=== PATIENT | female | born 1930 | race Caucasian/White ===

== ENCOUNTER 2016-10-14 09:38 | Outpatient (CLI) | payer MEDICARE, OTHER ==
[2016-01-22 09:06] VITALS: BP 141/75
[~2016-10-14 09:38] MED LIST: 0.9 % SODIUM CHLORIDE PF 10 ML VIAL IJ ONE; BUPIVACAINE HCL/PF 2.5 MG/ML 10ML VIAL IV ONE; Lidocaine 1% 5ml(IM or SUTURE)(PAIN CLINIC) ONE; TRIAMCINOLONE ACETONID 40MG/ML VIAL ONE
--- NOTE | 2016-10-14 13:50 | CAUDAL ESI WITH FLUORO ---
SUBJECTIVE: Ms. Seth presents today in follow up with back pain and bilateral lower extremity pain, now doing better, for a caudal epidural injection with trigger point placement. She has dementia and she really has a lot of trouble with the interview and physical localizing her symptoms. PROCEDURE: Caudal epidural steroid injection with trigger point injections under fluoroscopic guidance. DESCRIPTION OF PROCEDURE: The risks and benefits of a caudal epidural steroid injection were explained to the patient, including the risk of infection, bleeding, nerve injury, worsened pain, failure to relieve pain, spinal headache or steroid exposure risks, including hyperglycemia, hypertension, osteoporosis, and increased infectious risks. The patient understood the risks and agreed to proceed. The patient was placed on the fluoroscopy table in the prone position with a pillow underneath the abdomen. The caudal area was cleaned. AP and lateral fluoroscopic views were obtained, identifying the sacrum and sacral hiatus. The caudal epidural space was accessed from a percutaneous approach at the sacral hiatus with a 23-gauge, 3- inch needle. On entering the caudal epidural space, it was verified that there was no aspiration of blood or CSF or urine. Furthermore, the needle tip location was verified with lateral and AP fluoroscopic views. Omnipaque 240 myelogram dye was injected through the needle. The distribution of the dye was noted to be within the desired distribution within the caudal epidural space. At this point, triamcinolone acetate and 1% of lidocaine was injected into the caudal epidural space. The needle was subsequently removed from the back. At this point, attention was directed to the lumbosacral junction and an injection in the right and left iliolumbar ligament was performed with 0.25% bupivacaine mixed with 1% lidocaine and triamcinolone into the left and right sides. The patient tolerated the procedure without adverse sequelae. The area was cleaned and a bandage was applied over the injection sites. The patient was then monitored for 20 minutes following the procedure, during which time the vital signs remained stable and no adverse sequelae were noted or reported. 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 ASSESSMENT: 1. Intervertebral disk disorder. 2. Lumbar stenosis. PLAN: Caudal epidural steroid injection with trigger point injections under fluoroscopic guidance. FOLLOW UP: Patient is to call for complications or worsened pain. DAVID
== END 2016-10-14 09:48 ==
LOC: OUT 09:38
PROVIDERS: ATTEND Anesthesiology Pain Medicine
DX: M48.06 Spinal stenosis, lumbar region (principal); M51.36 Other intervertebral disc degeneration, lumbar region; M79.605 Pain in left leg; M79.604 Pain in right leg
CPT/HCPCS: 99214; G0463; J3301; J3490; Q9966

== ENCOUNTER 2016-11-01 14:56 | Outpatient (CLI) | payer MEDICARE, OTHER ==
[2016-01-22 09:06] VITALS: BP 141/75
== END 2016-11-01 14:57 ==
LOC: POD 14:56
PROVIDERS: ATTEND Podiatrist
DX: B35.1 Tinea unguium (principal); M79.674 Pain in right toe(s); M79.675 Pain in left toe(s)
CPT/HCPCS: 11721; G0463

== ENCOUNTER 2016-11-18 10:42 | Outpatient (CLI) | payer MEDICARE, OTHER ==
[2016-01-22 09:06] VITALS: BP 141/75
[~2016-11-18 10:42] MED LIST changes: -BUPIVACAINE HCL/PF 2.5 MG/ML 10ML VIAL IV ONE
--- NOTE | 2016-11-18 12:37 | CERVICAL ESI WITH FLUORO ---
SUBJECTIVE: Rae follows up with me today at [facility]. She says her back pain has completely resolved following a lumbar epidural injection. She wants her neck treated today. She is having left-sided neck pain. She has had a history of a remote ACDF in the past. She has symptoms of neck pain radiating to her left shoulder blade. She denies arm pain. She denies incontinence of bowel or bladder. She denies numbness or weakness in her upper extremities. I have no recent imaging. PROCEDURE PERFORMED: Left C7-T1 epidural steroid injection with fluoroscopic guidance. DESCRIPTION OF PROCEDURE: The risks and benefits were discussed with the patient, including the risks of infection, bleeding, nerve injury including paralysis, and headache. Furthermore , I discussed the risk of steroid exposure causing hyperglycemia, hypertension, osteoporosis, or increased infectious risks. The patient understood these risks and agreed to proceed. Consent was obtained. The patient was placed prone on the fluoroscopy table with a pillow underneath the chest to afford slight anterior flexion of the cervical spine. The patient' s back of the neck was cleaned and a sterile drape was applied. A 20-gauge thin-wall Tuohy epidural needle was inserted with a left paramedian approach at the C7-T1 interspace level. The position of the needle was verified with AP and lateral fluoroscopic views. The needle was advanced with a normal saline afur-rv-utzoyztsol technique until ygbo-rx-pbmtlojmmj was obtained. On obtaining tlvv-om-rnwtvkuima to normal saline it was verified that there was no aspiration of CSF or blood. At this point, triamcinolone acetate, 1 % lidocaine, and 0.25% bupivacaine was injected into the cervical epidural space. The stylet was replaced in the needle and the needle was removed from the neck. The neck was cleaned and a bandage was applied over the injection site. The patient tolerated the procedure well and was monitored afterwards for a total of 20 minutes during which time the vital signs remained stable and no adverse sequelae were experienced. The patient was discharged home in good condition. Prior to discharge the patient was given discharge instructions. ASSESSMENT: 1. Cervical radiculitis with history of anterior cervical diskectomy and fusion (ACDF). 2. Lumbosacral back pain with radiculitis, now resolved. PLAN: Plan today for a cervical epidural steroid injection at C7-T1. If she is not improved, I would obtain an MRI study. FOLLOW UP: She will follow up in 6 weeks. DAVID
== END 2016-11-18 10:43 ==
LOC: OUT 10:42
PROVIDERS: ATTEND Anesthesiology Pain Medicine
DX: M54.5 Low back pain (principal)
CPT/HCPCS: J3301; Q9966; 99214; G0463

== ENCOUNTER 2016-12-30 08:16 | Outpatient (CLI) | payer MEDICARE, OTHER ==
[2016-01-22 09:06] VITALS: BP 141/75
--- NOTE | 2016-12-31 11:48 | LESI WITH FLUORO ---
REFERRING PHYSICIAN: Dr. Nixon Blanco SUBJECTIVE: I had the opportunity of seeing Rae Seth today as an outpatient at [facility]. This is a very nice lady who I have treated for both cervical radiculitis most recently and in the past, lumbar radiculitis with neurogenic claudication associated with L4-L5 spinal stenosis. She says the neck and shoulder pain is better. She is not having severe leg pain; however, the back pain is now recurring when she stands and walks. She had 2 epidural injections last year and a cervical injection this year, and I have told her that I would treat her today but after that, I would want to wait at least 3 to 4 months prior to any further treatment for stenosis. Her symptoms are primary back pain when she stands and walks which resolves when she sits or lies down. Plan today for a left L5-S1 epidural steroid injection. I am going to keep the dose to a minimal dose. OPERATIVE PROCEDURE: Left L5-S1 epidural steroid injection with fluoroscopic guidance. DESCRIPTION OF PROCEDURE: The risks and benefits were discussed with the patient including the risk of infection, bleeding, nerve injury, and headache, as well as the risks of steroid exposure causing hyperglycemia, hypertension, osteoporosis, or increased infectious risks. The patient understood these risks and agreed to proceed. Consent was obtained prior to the procedure. The patient was placed in the prone position on the fluoroscopy table with a pillow underneath the abdomen to afford anterior flexion of the lumbar spine. The low back was cleaned and a sterile drape was applied. An 18-gauge thin wall Tuohy epidural needle was advanced with normal saline loss of resistance technique and direct fluoroscopic guidance with a left paramedian approach at the L5-S1 level. On obtaining loss of resistance to normal saline, it was verified that there was no aspiration of CSF or blood. Furthermore, the needle tip location was verified with lateral and AP fluoroscopic views. Omnipaque 240 myelogram dye were injected through the epidural needle. The distribution of the dye was noted to be within the desired distribution within the lumbar epidural space. Triamcinolone acetate and 1% lidocaine was injected into the epidural space. The stylet was replaced in the needle and the needle was removed from the back. The patient tolerated the procedure well. The back was cleaned and a bandage was applied over the injection site. The patient was monitored for 20 minutes following the procedure. during this time the vital signs remained stable and the patient experienced no adverse sequelae. The patient was discharged in good condition. ASSESSMENT: 1. L4-L5 spinal stenosis. 2. History of cervical stenosis, now symptoms have resolved. PLAN: Left L5-S1 epidural steroid injection with fluoroscopic guidance. FOLLOWUP: Return to clinic if problems develop or worsen. Dr. Blanco, thank you again for allowing me to take part in the care of this nice lady. cc: Dr. Nixon HERNANDEZ
== END 2016-12-30 08:17 ==
LOC: OUT 08:16
PROVIDERS: ATTEND Anesthesiology Pain Medicine
DX: M48.06 Spinal stenosis, lumbar region (principal)
CPT/HCPCS: J3301; Q9966; 99213; G0463

== ENCOUNTER 2017-01-17 14:14 | Outpatient (CLI) | payer MEDICARE, OTHER ==
[2016-01-22 09:06] VITALS: BP 141/75
== END 2017-01-17 14:15 ==
LOC: POD 14:14
PROVIDERS: ATTEND Podiatrist
DX: B35.1 Tinea unguium (principal); M79.674 Pain in right toe(s); M79.675 Pain in left toe(s)
CPT/HCPCS: 11721; G0463

== ENCOUNTER 2017-01-24 09:48 | Outpatient (CLI) | payer MEDICARE, OTHER ==
[2016-01-22 09:06] VITALS: BP 141/75
--- NOTE | 2017-01-24 20:34 | Diagnostic Imaging Report ---
PRETTY LEMONS [facility] [address] [facility] [address] [place] [address]. [id number] Report Submission Date: January 24, 2017 4:16:27 PM CDT Patient Study Name: JENELLE WILSON Date: January 24, 2017 10:12:36 AM CDT Modality Type: CT\SR Gender: F Description: CT L-SPINE W/O CONTRAS : 28 Institution: [facility] Physician: PRETTY LEMONS CT lumbar spine without contrast. History: Chronic back pain increasing or 6 months, left greater than right Technique: Transaxial computed tomography images of the lumbar spine were obtained without the use of intravenous contrast according to standard protocol. Coronal and sagittal images were obtained as part of the examination. Findings: Severely low scoliosis is seen in lower lumbar spine. The vertebral body height are normal. There is no evidence of acute fracture. There severe invertebral disc space narrowing throughout the lumbar spine with associated vacuum disc phenomena. A L5 pars defect is present with associated grade II anterolisthesis of L5 on S1 noted. There is multilevel posterior disc bulge and spurring present throughout the lumbar spine including L1/L2, L2/L3, and L3/L4. There is also facet arthropathy which results in right neural foraminal stenosis at these levels. This also at least mild central canal stenosis at L1/L2, L2/L3, and L3/L4 present. There is bilateral foraminal stenosis at L5/S1. There is no paravertebral soft tissue swelling. There is atherosclerosis of the aorta. Impression: 1. No acute osseous injury . 2. Levoscoliosis with extensive multilevel spondylosis resulting in multilevel central canal stenosis and foraminal stenosis as described. 3. L5 pars defect with grade II anterolisthesis of L5 on S1 noted resulting in bilateral neural foraminal stenosis Electronically signed on January 24, 2017 4:16:27 PM CDT by: Rich HERNANDEZ
--- NOTE | 2017-01-24 20:34 | Diagnostic Imaging Report ---
PRETTY LEMONS [facility] [address] [facility] [address] [place] [address]. [id number] Report Submission Date: January 24, 2017 4:07:35 PM CDT Patient Study Name: JENELLE WILSON Date: January 24, 2017 10:07:38 AM CDT Modality Type: CT\SR Gender: F Description: CT T-SPINE W/O CONTRAS : 29 Institution: [facility] Physician: PRETTY LEMONS CT thoracic spine without contrast. History: Chronic back pain increasing or 6 months, left greater than right Technique: Transaxial computed tomography images of the thoracic spine were obtained without the use of intravenous contrast according to standard protocol. Coronal and sagittal images were obtained as part of the examination. Findings: S-shaped thoracolumbar scoliosis with rightward curvature in the lower thoracic spine noted. There is no evidence of acute fracture present. There is no subluxation. There is severe intervertebral disc space narrowing throughout the thoracic spine with prominent anterior spurring within the mid and upper thoracic spine particularly and also within the lower lumbar spine at the thoracolumbar junction. There is also partial ankylosing of the upper thoracic vertebrae. There is also mild facet arthropathy in the lower thoracic spine. No definite osseous central canal stenosis is identified. There is no paravertebral soft tissue swelling. There is atherosclerosis of the aorta. Impression: 1. S-shaped thoracolumbar scoliosis with multilevel intervertebral disc space narrowing with spurring present throughout. No osseous central canal stenosis is appreciated on the CT. 2. No acute osseous abnormality. Electronically signed on January 24, 2017 4:07:35 PM CDT by: Rich HERNANDEZ
--- NOTE | 2017-01-24 20:34 | Diagnostic Imaging Report ---
PRETTY LEMONS [facility] [address] [facility] [address] [place] [address]. [id number] Report Submission Date: January 24, 2017 10:46:00 AM CDT Patient Study Name: JENELLE WILSON Date: January 24, 2017 10:03:21 AM CDT Modality Type: CT\SR Gender: F Description: CT C-SPINE W/O CONTRAS : 29 Institution: [facility] Physician: PRETTY LEMONS CT of the cervical spine CLINICAL HISTORY: Chronic neck pain and back pain. TECHNIQUE: CT of the cervical spine is performed in contiguous axial slices with sagittal and coronal reconstructions. FINDINGS: Disc spaces are narrowed at C3-4, C4-5. There has been prior fusion at C5-6, C6 -7 and C7-T1 with solid-appearing fusion anteriorly. Degenerative anterolisthesis at C4-5 measures 3 mm. Prevertebral soft tissues are within normal limits. The C1-2 articulation is normal and the base of the odontoid is intact. Carotid arterial calcification is incidentally noted. There is no evident fracture. IMPRESSION: Multilevel spondylosis. Prior fusion C5 through T1. Degenerative anterolisthesis at C4-5. Electronically signed on January 24, 2017 10:46:00 AM CDT by: Leobardo HERNANDEZ
== END 2017-01-24 09:50 ==
LOC: RAD 09:48
PROVIDERS: ATTEND Anesthesiology Pain Medicine
DX: M54.9 Dorsalgia, unspecified (principal); M54.2 Cervicalgia
CPT/HCPCS: 72125; 72128; 72131

== ENCOUNTER 2017-01-27 14:44 | Outpatient (CLI) | payer MEDICARE, OTHER ==
[2016-01-22 09:06] VITALS: BP 141/75
--- NOTE | 2017-01-29 13:52 | PAIN CLINIC PROGRESS NOTES ---
REASON FOR VISIT: I am seeing Ms. Seth for complaints of severe pain; however, she tells me she has no symptoms and no complaints at this point. We received a call from her care facility and new imaging was obtained which reveals multi-level spinal stenosis in the lumbar spine, L1-L2 through L3-L4 with neuroforaminal narrowing bilaterally at L5-S1 associated with grade 1 to 2 spondylolisthesis and a pars defect. Also, some stenosis of the cervical spine. ASSESSMENT: 1. Cervical and lumbar scoliosis. 2. Grade 1 to 2 spondylolisthesis of L5-S1 with a pars defect. 3. Thoracic scoliosis. PLAN: At this point, since Ms. Seth obviously has had no injury, no evidence of fracture, and no symptoms of radiculitis or neurogenic claudication, I do not recommend any therapy. I will follow her up if her symptoms should worsen or reoccur. cc: Dr. Nixon HERNANDEZ
== END 2017-01-27 14:45 ==
LOC: OUT 14:44
PROVIDERS: ATTEND Anesthesiology Pain Medicine
DX: M41.9 Scoliosis, unspecified (principal); M43.17 Spondylolisthesis, lumbosacral region
CPT/HCPCS: 99203; G0463

== ENCOUNTER 2017-04-22 14:47 | Outpatient (CLI) | payer MEDICARE, OTHER ==
[2016-01-22 09:06] VITALS: BP 141/75
== END 2017-04-22 14:50 ==
LOC: POD 14:47
PROVIDERS: ATTEND Podiatrist
DX: L89.893 Pressure ulcer of other site, stage 3 (principal)
CPT/HCPCS: 11042; G0463

== ENCOUNTER 2017-05-05 08:30 | Outpatient (CLI) | payer MEDICARE, OTHER ==
[2016-01-22 09:06] VITALS: BP 141/75
--- NOTE | 2017-05-08 13:12 | PAIN CLINIC PROGRESS NOTES ---
REFERRING PHYSICIAN: Dr. Nixon Blanco Dear Nixon: REASON FOR VISIT: I had the opportunity of following up with Rae Seth. This is a patient I have treated for lumbar radiculitis in the past. She is a very sweet 85-year-old white female who suffers from mild dementia. She says the back and leg pain is returning today, and as I look at her legs, she is developing what appears to be cellulitis of both lower extremities. She is scheduled to relocate to be with her other daughter out of state and to this extent, I told her that I would try to get her back in for treatment before she leaves. However, because of the cellulitis, I am not able to give her a palliative injection today. PLAN: Therefore, I am going to start her on some doxycycline 200 mg twice a day for 21 days and I will follow her up either at [facility] or at my office for caudal epidural injection versus lumbar epidural block. I have explained this to her and she is in agreement and we will see her back in the near future. In the interim, I am going to have her visit with Dr. Blanco. cc: Dr. Nixon HERNANDEZ
== END 2017-05-05 09:00 ==
LOC: OUT 08:30
PROVIDERS: ATTEND Anesthesiology Pain Medicine
DX: M54.16 Radiculopathy, lumbar region (principal)
CPT/HCPCS: 99213; G0463

== ENCOUNTER 2017-05-06 11:46 | Outpatient (CLI) | payer MEDICARE, OTHER ==
[2016-01-22 09:06] VITALS: BP 141/75
== END 2017-05-06 13:58 ==
LOC: POD 11:46
PROVIDERS: ATTEND Podiatrist
DX: L89.891 Pressure ulcer of other site, stage 1 (principal)
CPT/HCPCS: G0463

== ENCOUNTER 2017-06-02 08:01 | Outpatient (CLI) | payer MEDICARE, OTHER ==
[2016-01-22 09:06] VITALS: BP 141/75
--- NOTE | 2017-06-02 09:21 | LESI WITH FLUORO ---
SUBJECTIVE: Ms. Seth presents today with back and bilateral leg pain and symptoms of neurogenic claudication and spinal stenosis. She has been treated for previous radiculopathy with a lumbar epidural steroid injection. She is an 86-year-old white female with scoliosis and I saw her last month and she had cellulitis on both lower extremities. This has for the most part resolved on doxycycline, and for today, we are going to proceed with a lumbar epidural steroid injection. I understand she is moving and relocating out of town or out of state. I would be glad to follow her up in the future as necessary. OPERATIVE PROCEDURE: Right L5-S1 epidural steroid injection with fluoroscopic guidance. DESCRIPTION OF PROCEDURE: The risks and benefits were discussed with the patient including the risk of infection, bleeding, nerve injury, and headache, as well as the risks of steroid exposure causing hyperglycemia, hypertension, osteoporosis, or increased infectious risks. The patient understood these risks and agreed to proceed. Consent was obtained prior to the procedure. The patient was placed in the prone position on the fluoroscopy table with a pillow underneath the abdomen to afford anterior flexion of the lumbar spine. The low back was cleaned and a sterile drape was applied. An 18-gauge thin wall Tuohy epidural needle was advanced with normal saline loss of resistance technique and direct fluoroscopic guidance with a right paramedian approach at the L5-S1 level. On obtaining loss of resistance to normal saline, it was verified that there was no aspiration of CSF or blood. Furthermore, the needle tip location was verified with lateral and AP fluoroscopic views. Omnipaque 240 myelogram dye were injected through the epidural needle. The distribution of the dye was noted to be within the desired distribution within the lumbar epidural space. The medication was injected into the epidural space. The stylet was replaced in the needle and the needle was removed from the back. The patient tolerated the procedure well. The back was cleaned and a bandage was applied over the injection site. The patient was monitored for 20 minutes following the procedure and during this time the vital signs remained stable and the patient experienced no adverse sequelae. The patient was discharged in good condition. ASSESSMENT: 1. Radiculitis. 2. Spinal stenosis. PLAN: Right L5-S1 epidural steroid injection with fluoroscopic guidance today. FOLLOWUP: Return to clinic if problems develop or worsen. Dr. Blanco, thanks again for allowing me to take part in the care of this nice lady. cc: Dr. Nixon HERNANDEZ
== END 2017-06-02 08:02 ==
LOC: OUT 08:01
PROVIDERS: ATTEND Anesthesiology Pain Medicine
DX: M54.17 Radiculopathy, lumbosacral region (principal); M48.07 Spinal stenosis, lumbosacral region
CPT/HCPCS: J3301; Q9966; 62323; 99213; G0463